=== PATIENT | female | born 1955 | race Caucasian/White ===

== ENCOUNTER → 2016-10-19 | Outpatient (CLI) | payer OTHER ==
[2016-09-05 09:46] VITALS: BP 158/93
[~2016-10-19] MED LIST: ALPR0.25 PO; ASPI81TA2 PO; GADOBUTROL 7.5 MMOL/7.5 ML VIAL IV ONE; HYDR25CA PO; LEVO50TA PO; ZOLP5TAB PO
--- NOTE | 2016-10-19 17:23 | KCIC ---
PROCEDURE MRI of the brain without and with contrast 10/19/2016 HISTORY Personality changes. Insomnia, memory loss since July of 2016. TECHNIQUE Unenhanced T1 weighted sagittal and axial, FLAIR, gradient echo, T2 weighted and diffusion weighted axial images of the brain were obtained. After the intravenous administration of 6 cc Gadavist, enhanced T1 weighted axial and coronal images of the brain were obtained. FINDINGS The ventricles and sulci are within normal limits in size and configuration. No area of significant abnormal signal intensity is seen involving the brain parenchyma. There is no MRI evidence of acute ischemia/infarction. No abnormal area of contrast enhancement is seen. Mild mucosal thickening is seen throughout the paranasal sinuses. A 2 centimeter mucous retention cyst is seen involving the left maxillary sinus. There are minimal bilateral mastoid effusions. Normal flow voids are seen within the major vascular structures surrounding the brain parenchyma. IMPRESSION 1. Negative MRI of the brain. 2. Mild paranasal sinus and mastoid disease. Electronically signed by: Cristian Carrizales MD (Oct 19, 2016 17:22:14)
== END | disposition home or self-care (01) ==
LOC: KCIC MRI 12:51
PROVIDERS: ATTEND Family Medicine
DX: G47.00 Insomnia, unspecified (principal); F07.0 Personality change due to known physiological condition
CPT/HCPCS: 70553; A9585

== ENCOUNTER → 2016-10-20 | Outpatient (CLI) | payer OTHER ==
[2016-09-05 09:46] VITALS: BP 158/93
[~2016-10-20] MED LIST changes: -GADOBUTROL 7.5 MMOL/7.5 ML VIAL IV ONE
[2016-10-20 09:31] LABS: BASO # 0.1 x10^3/uL (0.0-0.2); BASO % 1 % (0-3); EOS % 3 % (0-3); HEMATOCRIT 41.6 % (36.0-47.0); HEMOGLOBIN 13.9 g/dL (12.0-15.5); LYMPH # 1.4 x10^3/uL (1.0-4.8); LYMPH % 20 % (24-48); MEAN CORPUSCULAR HEMOGLOBIN 31 pg (25-35); MEAN CORPUSCULAR HGB CONC 33 g/dL (31-37); MEAN CORPUSCULAR VOLUME 92 fL (79-100); MONO % 10 % (0-9); NEUT % 65 % (31-73); PLATELET COUNT 355 x10^3/uL (140-400); RED BLOOD COUNT 4.55 x10^6/uL (3.50-5.40); RED CELL DISTRIBUTION WIDTH 13.4 % (11.5-14.5); WHITE BLOOD COUNT 6.8 x10^3/uL (4.0-11.0)
[2016-10-20 09:40] LABS: % SAT IRON 31 % (15-34); IRON,SERUM 105 ug/dL (50-170)
[2016-10-20 09:56] LABS: ALBUMIN 3.7 g/dL (3.4-5.0); ALBUMIN/GLOBULIN RATIO 0.9 (1.0-1.7); C-REACTIVE PROTEIN 1.5 mg/L (0-3.3); CALCIUM 9.2 mg/dL (8.5-10.1); CHOLESTEROL/HDL RATIO 2.9; CREATININE 0.6 mg/dL (0.6-1.0); GFR 101.6; MAGNESIUM 2.4 mg/dL (1.8-2.4); POTASSIUM 4.1 mmol/L (3.5-5.1); TOTAL BILIRUBIN 0.4 mg/dL (0.2-1.0); TOTAL PROTEIN 7.6 g/dL (6.4-8.2)
[2016-10-20 09:57] LABS: FREE T4 1.2 ng/dL (0.76-1.46)
[2016-10-20 10:16] LABS: FOLATE > 20.00 ng/ml (3.2-20.0); VITAMIN-B12 596 pg/mL (247-911)
[2016-10-21 16:18] LABS: CERULOPLASMIN 25.4 mg/dL (19.0-39.0)
== END | disposition home or self-care (01) ==
LOC: LAB 08:56
PROVIDERS: ATTEND Family Medicine
DX: G47.00 Insomnia, unspecified (principal); F33.2 Major depressive disorder, recurrent severe without psychotic features; E03.9 Hypothyroidism, unspecified; F41.1 Generalized anxiety disorder; F68.8 Other specified disorders of adult personality and behavior
CPT/HCPCS: 36415; 80053; 80061; 82390; 82607; 82728; 82746; 83036; 83540; 83550; 83735; 84100; 84439; 84443; 85027; 85651; 86140

== ENCOUNTER → 2016-12-09 | Outpatient (CLI) | payer OTHER ==
[2016-09-05 09:46] VITALS: BP 158/93
[2016-12-09 16:24] LABS: BASO # 0.1 x10^3/uL (0.0-0.2); BASO % 1 % (0-3); EOS % 2 % (0-3); HEMATOCRIT 38.8 % (36.0-47.0); HEMOGLOBIN 13.2 g/dL (12.0-15.5); LYMPH # 1.7 x10^3/uL (1.0-4.8); LYMPH % 19 % (24-48); MEAN CORPUSCULAR HEMOGLOBIN 31 pg (25-35); MEAN CORPUSCULAR HGB CONC 34 g/dL (31-37); MEAN CORPUSCULAR VOLUME 90 fL (79-100); MONO % 8 % (0-9); NEUT % 70 % (31-73); PLATELET COUNT 348 x10^3/uL (140-400); RED CELL DISTRIBUTION WIDTH 12.6 % (11.5-14.5); WHITE BLOOD COUNT 8.9 x10^3/uL (4.0-11.0)
[2016-12-09 16:38] LABS: ALBUMIN 3.7 g/dL (3.4-5.0); ALBUMIN/GLOBULIN RATIO 0.8 (1.0-1.7); C-REACTIVE PROTEIN 2.4 mg/L (0-3.3); CALCIUM 8.9 mg/dL (8.5-10.1); CREATININE 0.8 mg/dL (0.6-1.0); GFR 72.9; POTASSIUM 3.9 mmol/L (3.5-5.1); TOTAL BILIRUBIN 0.3 mg/dL (0.2-1.0); TOTAL PROTEIN 8.1 g/dL (6.4-8.2)
[2016-12-14 06:21] LABS: CRYPTOSPORIDIUM EIA Negative (Negative)
== END | disposition home or self-care (01) ==
LOC: LAB 15:59
PROVIDERS: ATTEND Family Medicine
DX: E03.9 Hypothyroidism, unspecified (principal); E66.3 Overweight; R19.7 Diarrhea, unspecified
CPT/HCPCS: 36415; 80053; 85027; 85651; 86140; 87045; 87205; 87324; 87328

== ENCOUNTER → 2017-03-31 | Outpatient (CLI) | payer OTHER ==
[2016-09-05 09:46] VITALS: BP 158/93
[~2017-03-31] MED LIST changes: +ASPI-630 PO; -ASPI81TA2 PO
== END | disposition home or self-care (01) ==
LOC: LAB 13:35
PROVIDERS: ATTEND Family Medicine
DX: E03.9 Hypothyroidism, unspecified (principal)
CPT/HCPCS: 36415; 84439; 84443; 84480; 84481

== ENCOUNTER → 2017-06-09 | Outpatient (CLI) | payer OTHER ==
[2016-09-05 09:46] VITALS: BP 158/93
== END | disposition home or self-care (01) ==
LOC: SPEC 10:52
DX: N95.1 Menopausal and female climacteric states (principal)
CPT/HCPCS: 88175

== ENCOUNTER → 2017-07-29 | Outpatient (CLI) | payer OTHER | END | disposition home or self-care (01) | LOC: KCIC MAMMO 14:55 | DX: Z12.31 Encounter for screening mammogram for malignant neoplasm of breast (principal) | CPT/HCPCS: 77063; G0202 ==

== ENCOUNTER → 2017-07-29 | Outpatient (CLI) | payer OTHER ==
[2017-07-29 13:41] LABS: FREE T4 0.98 ng/dL (0.76-1.46)
== END | disposition home or self-care (01) ==
LOC: LAB 11:07
DX: E03.9 Hypothyroidism, unspecified (principal)
CPT/HCPCS: 36415; 84439; 84443; 84481

== ENCOUNTER → 2017-08-12 | Outpatient (CLI) | payer OTHER | END | disposition home or self-care (01) | LOC: KCIC MAMMO 08:57 | DX: N63.10 Unspecified lump in the right breast, unspecified quadrant (principal) | CPT/HCPCS: 76641; 77065 ==

== ENCOUNTER → 2017-09-29 | Outpatient (CLI) | payer OTHER | END | disposition home or self-care (01) | LOC: US 12:30 | DX: R92.8 Other abnormal and inconclusive findings on diagnostic imaging of breast (principal); N63.10 Unspecified lump in the right breast, unspecified quadrant | CPT/HCPCS: 76942; 77065; C1713 ==

== ENCOUNTER → 2018-04-17 | Outpatient (CLI) | payer OTHER ==
[2016-09-05 09:46] VITALS: BP 158/93
--- NOTE | 2018-04-17 13:00 | RAD ---
DATE: April 17, 2018 EXAM: MAMMO BELL DIAG RT, BREAST RIGHT HISTORY: History of recent benign right breast biopsy. Follow-up study. COMPARISON: September 29, 2017 mammogram and mammograms dated August 12, 2017 and July 29, 2017 and right breast sonogram dated August 12, 2017. DIAGNOSTIC RIGHT 3D MAMMOGRAPHY 2-D digital mammographic views of the right breast were performed in the CC and MLO projections. 3-D digital tomosynthesis images of the right breast were performed in the CC and MLO projections and reviewed on a computer workstation. This study was interpreted with the benefit of Computerized Aided Detection (CAD). FINDINGS: Breast Density: HETERO The breast parenchyma is heterogenously dense, which could reduce sensitivity of mammography. Breast parenchyma level C.. There are no new dominant suspicious masses, suspicious microcalcifications or evidence of architectural distortion. Previously seen nodule of the posterior upper outer quadrant of the right breast appears smaller. Biopsy clip is seen anteriorly within the right breast. RIGHT BREAST SONOGRAM: High-resolution sonography of the right breast including the 10:00 position and 12:00 positions were performed. The previously seen 12:00 nodule which was biopsied in September 2017 is not evident today. The previously seen hypoechoic area of the 10:00 position is not seen today. IMPRESSION: No mammographic indicators for malignancy. Previously seen mammographic nodule appears smaller in size. Previously seen sonographic nodules at the 10:00 and 12:00 positions of the right breast are not seen today. History of benign right breast biopsy. Therefore, mammographic finding most likely is benign and recommend bilateral mammography in 6 months. BI-RADS CATEGORY: 3 PROBABLE BENIGN-SHORT TERM F/U RECOMMENDED FOLLOW-UP: 6M 6 MONTH FOLLOW-UP PQRS compliance statement: Patient information was entered into a reminder system with a target due date October 15, 2018 for the next mammogram. Mammography is a sensitive method for finding small breast cancers, but it does not detect them all and is not a substitute for careful clinical examination. A negative mammogram does not negate a clinically suspicious finding and should not result in delay in biopsying a clinically suspicious abnormality. "Our facility is accredited by the [employer] Mammography [employer]." The patient's breast density may affect the ability of mammography to detect breast cancer. There are 4 categories of breast density, A, B, C and D. Breast density A means that most of the breast tissue is replaced with adipose tissue and therefore is not dense. Breast density B means that the breast tissue is mildly dense and scattered. Breast density C means that the breast tissue is heterogeneously dense. Breast density D means that the breast tissue is very dense. Breast densities especially C and D may decrease the sensitivity of mammography to detect breast cancer. Therefore, the patient may benefit from 3-D breast mammography (3D breast tomography) as a part of their screening mammogram. Insurance may or may not pay for this additional imaging. The patient's breast density based on today's mammogram is category C.
== END | disposition home or self-care (01) ==
LOC: MAMMO 09:55
PROVIDERS: ATTEND Surgery
DX: R92.2 Inconclusive mammogram (principal); E03.9 Hypothyroidism, unspecified; E66.3 Overweight
CPT/HCPCS: 76641; 77065; G0279; 77061

== ENCOUNTER → 2018-10-11 | Outpatient (CLI) | payer OTHER ==
[2016-09-05 09:46] VITALS: BP 158/93
--- NOTE | 2018-10-11 13:54 | RAD ---
DATE: 10/11/2018 EXAM: MAMMO BELL MELY BURGESSAT HISTORY: 6 month follow-up COMPARISON: 04/17/2018, 09/29/2017, 08/22/2017, 07/29/2017, 09/26/2014 This study was interpreted with the benefit of Computerized Aided Detection (CAD). Breast Density: HETERO The breast parenchyma is heterogenously dense, which could reduce sensitivity of mammography. Breast parenchyma level C. FINDINGS: 2-D and 3-D tomosynthesis imaging was performed in CC and MLO projections. An old breast biopsy marker is present at the 12:00 location in the right breast. The fibroglandular pattern in both breasts is multinodular in character. A nodular density projected over the posterolateral aspect of the right breast in the CC projection is stable. It has shown no definite change since the study from 09/26/2014. No new or enlarging breast densities are seen. Benign calcifications are present. No suspicious microcalcifications have developed. IMPRESSION: Stable mammograms without evidence of malignancy. Routine yearly follow up mammography is suggested. BI-RADS CATEGORY: 2 BENIGN FINDING(S) RECOMMENDED FOLLOW-UP: 12M 12 MONTH FOLLOW-UP PQRS compliance statement: Patient information was entered into a reminder system with a target due date for the next mammogram. Mammography is a sensitive method for finding small breast cancers, but it does not detect them all and is not a substitute for careful clinical examination. A negative mammogram does not negate a clinically suspicious finding and should not result in delay in biopsying a clinically suspicious abnormality. "Our facility is accredited by the [employer] Mammography [employer]."
== END | disposition home or self-care (01) ==
LOC: MAMMO 13:04
PROVIDERS: ATTEND Surgery
DX: R92.8 Other abnormal and inconclusive findings on diagnostic imaging of breast (principal)
CPT/HCPCS: 77066; G0279; 77062

== ENCOUNTER → 2018-11-29 | Outpatient (CLI) | payer OTHER ==
[2016-09-05 09:46] VITALS: BP 158/93
[2018-11-29 10:35] LABS: HEMOGLOBIN 13.4 g/dL (12.0-15.5); RED BLOOD COUNT 4.5 x10^6/uL (3.50-5.40); RED CELL DISTRIBUTION WIDTH 12.8 % (11.5-14.5); WHITE BLOOD COUNT 5.7 x10^3/uL (4.0-11.0)
[2018-11-29 10:52] LABS: ALBUMIN/GLOBULIN RATIO 1.1 (1.0-1.7); CALCIUM 9.4 mg/dL (8.5-10.1); POTASSIUM 4.9 mmol/L (3.5-5.1); TOTAL BILIRUBIN 0.4 mg/dL (0.2-1.0); TOTAL PROTEIN 7.7 g/dL (6.4-8.2)
[2018-11-29 10:57] LABS: CHOLESTEROL/HDL RATIO 3.1
[2018-11-29 11:01] LABS: FREE T4 0.99 ng/dL (0.76-1.46); THYROID STIM HORMONE (TSH) 0.552 uIU/mL (0.358-3.74)
== END | disposition home or self-care (01) ==
LOC: LAB 10:13
PROVIDERS: ATTEND Nurse Practitioner Gerontology
DX: Z00.00 Encounter for general adult medical examination without abnormal findings (principal); E03.9 Hypothyroidism, unspecified
CPT/HCPCS: 36415; 80053; 80061; 84439; 84443; 85027

== ENCOUNTER → 2019-10-25 | Outpatient (CLI) | payer OTHER ==
[2016-09-05 09:46] VITALS: BP 158/93
[2019-10-25 09:44] LABS: BASO % 1 % (0-3); EOS # 0.3 x10^3/uL (0.0-0.7); EOS % 6 % (0-3); HEMATOCRIT 38.8 % (36.0-47.0); HEMOGLOBIN 12.9 g/dL (12.0-15.5); LYMPH # 1.6 x10^3/uL (1.0-4.8); LYMPH % 30 % (24-48); MEAN CORPUSCULAR HEMOGLOBIN 30 pg (25-35); MEAN CORPUSCULAR HGB CONC 33 g/dL (31-37); MEAN CORPUSCULAR VOLUME 89 fL (79-100); MONO # 0.6 x10^3/uL (0.0-1.1); MONO % 11 % (0-9); NEUT # 2.7 x10^3/uL (1.8-7.7); NEUT % 52 % (31-73); PLATELET COUNT 317 x10^3/uL (140-400); RED BLOOD COUNT 4.36 x10^6/uL (3.50-5.40); RED CELL DISTRIBUTION WIDTH 12.8 % (11.5-14.5); WHITE BLOOD COUNT 5.3 x10^3/uL (4.0-11.0)
[2019-10-25 10:01] LABS: ALBUMIN 3.8 g/dL (3.4-5.0); ALBUMIN/GLOBULIN RATIO 1.1 (1.0-1.7); CALCIUM 9.1 mg/dL (8.5-10.1); CREATININE 0.8 mg/dL (0.6-1.0); GFR 72.2; POTASSIUM 4.6 mmol/L (3.5-5.1); TOTAL BILIRUBIN 0.3 mg/dL (0.2-1.0); TOTAL PROTEIN 7.2 g/dL (6.4-8.2)
[2019-10-25 10:02] LABS: CHOLESTEROL/HDL RATIO 3.1
[2019-10-25 10:12] LABS: FREE T4 1.08 ng/dL (0.76-1.46); THYROID STIM HORMONE (TSH) 0.24 uIU/mL (0.358-3.74)
== END ==
LOC: LAB 09:26
PROVIDERS: ATTEND Nurse Practitioner Gerontology
DX: Z00.00 Encounter for general adult medical examination without abnormal findings (principal); E03.9 Hypothyroidism, unspecified
CPT/HCPCS: 36415; 80053; 80061; 84439; 84443; 85025

== ENCOUNTER → 2020-12-17 | Outpatient (CLI) | payer OTHER ==
[2016-09-05 09:46] VITALS: BP 158/93
--- NOTE | 2020-12-17 09:37 | RAD ---
EXAM: Bilateral digital screening mammogram with tomosynthesis. HISTORY: 65-year-old female presents for screening mammography. TECHNIQUE: Full-field digital craniocaudal and mediolateral oblique 2D and 3D tomosynthesis images of both breasts are obtained for evaluation. Computer aided detection was applied. COMPARISON: 10/11/2018 BREAST PARENCHYMAL DENSITY: Level C - Heterogeneously dense. FINDINGS: There is asymmetry with possible associated architectural distortion within the 11:30 to 12 :00 position of the left breast at mid depth. There are additional areas of asymmetry which are stabl e when allowing for differences in imaging technique. There are multiple benign calcifications. There is a biopsy clip within the anterior right breast. IMPRESSION: BI-RADS Category 0: Incomplete. Additional imaging needed. RECOMMENDATION: Further evaluation with a full field true lateral view and spot compression 3D tomosy nthesis images of the left breast is recommended to assess asymmetry with possible associated distort ion at the 11:30 at 12:00 position is recommended. Sonographic imaging can also be performed if deeme d indicated based on additional mammographic findings. If your mammogram demonstrates that you have dense breast tissue, which could hide abnormalities, and if you have other risk factors for breast cancer that have been identified, you might benefit from s upplemental screening tests that may be suggested by your ordering physician. Dense breast tissue, i n and of itself, is a relatively common condition. This information is not provided to cause undue c oncern, but rather to raise your awareness and to promote discussion with your physician regarding th e presence of other risk factors, in addition to dense breast tissue. A report of your mammography re sults will be sent to you and your physician. You should contact your physician if you have any ques tions or concerns regarding this report. Mammography is a sensitive method for finding small breast cancers, but it does not detect them all a nd is not a substitute for careful clinical examination. A negative mammogram does not negate a clin ically suspicious finding and should not result in delay in biopsying a clinically suspicious abnorma lity. PQRS compliance statement - Patient information was entered into a reminder system with a target due date for the next mammogram. "Our facility is accredited by the [employer] Mammography Program." Electronically signed by: Aura Allen MD (12/17/2020 9:35 AM) [id number]
== END ==
LOC: MAMMO 09:53
PROVIDERS: ATTEND Nurse Practitioner Gerontology
DX: Z12.31 Encounter for screening mammogram for malignant neoplasm of breast (principal); N64.89 Other specified disorders of breast
CPT/HCPCS: 77063; 77067

== ENCOUNTER → 2021-01-01 | Outpatient (CLI) | payer OTHER ==
[2016-09-05 09:46] VITALS: BP 158/93
--- NOTE | 2021-01-01 14:46 | RAD ---
DATE: 01/01/2021 EXAM: MAMMO BELL DIAG LT, BREAST LEFT HISTORY: Recall from screening mammogram for a focal asymmetry with architectural distortion in the left breast. COMPARISON: 12/17/2020, 10/11/2018, 07/19/2017 This study was interpreted with the benefit of Computerized Aided Detection (CAD). Breast Density:HETERO The breast parenchyma is heterogenously dense, which could reduce sensitivity of mammography. Breast parenchyma level C. FINDINGS: Mammogram: The focal asymmetry with possible architectural distortion at 11-12 o'clock in the left breast resolves with spot compression. This is likely superimposed fibroglandular tissue. Ultrasound: Focused ultrasound of the left breast at 11:30, 6.5 cm from nipple in the area of concern demonstrates some dense fibroglandular tissue but no suspicious mass or cyst. IMPRESSION: No evidence of malignancy. BI-RADS CATEGORY: 1 NEGATIVE RECOMMENDED FOLLOW-UP: 12M 12 MONTH FOLLOW-UP PQRS compliance statement: Patient information was entered into a reminder system with a target due date for the next mammogram. Mammography is a sensitive method for finding small breast cancers, but it does not detect them all and is not a substitute for careful clinical examination. A negative mammogram does not negate a clinically suspicious finding and should not result in delay in biopsying a clinically suspicious abnormality. "Our facility is accredited by the [employer] Mammography [employer]."
== END ==
LOC: MAMMO 10:43
PROVIDERS: ATTEND Nurse Practitioner Gerontology
DX: R92.8 Other abnormal and inconclusive findings on diagnostic imaging of breast (principal)
CPT/HCPCS: 76641; 77065; G0279; 77061

== ENCOUNTER → 2021-01-28 | Outpatient (CLI) | payer OTHER, MEDICARE ==
[2016-09-05 09:46] VITALS: BP 158/93
[2021-01-28 16:13] LABS: ALBUMIN 4.4 g/dL (3.4-5.0); ALBUMIN/GLOBULIN RATIO 1.3 (1.0-1.7); CALCIUM 9.4 mg/dL (8.5-10.1); CREATININE 0.9 mg/dL (0.6-1.0); GFR 62.8; POTASSIUM 4.6 mmol/L (3.5-5.1); TOTAL BILIRUBIN 0.3 mg/dL (0.2-1.0); TOTAL PROTEIN 7.8 g/dL (6.4-8.2)
[2021-01-28 16:26] LABS: FREE T4 0.97 ng/dL (0.76-1.46); THYROID STIM HORMONE (TSH) 0.377 uIU/mL (0.358-3.74)
[2021-01-29 00:09] LABS: HEMOGLOBIN A1C 5.4 % (4.8-5.6)
== END ==
LOC: LAB 15:25
PROVIDERS: ATTEND Family Medicine
DX: E03.9 Hypothyroidism, unspecified (principal); R73.9 Hyperglycemia, unspecified; Z78.0 Asymptomatic menopausal state
CPT/HCPCS: 80053; 82306; 83036; 84439; 84443